=== PATIENT | female | born 1965 | race Caucasian/White ===

== ENCOUNTER 2017-06-28 18:12 | Emergency (ER) | payer BC ==
[~2017-06-28] VITALS: Ht 170.2 cm; Wt 108.9 kg
--- NOTE | 2017-06-28 18:20 | NUR ---
PRESENTS TO ER C/O NUMBNESS TO BOTH HANDS, MOUTH AND BILATERAL FEET SINCE 3AM TODAY. A/OX4 .BREATHING EVEN AND UNLABORED. NO SOB. NO NEURO DEFICITS. VITALS STABLE. SAFETY AND COMFORT MEASURES IN PLACE. AWAITING MD ORDERS.
[2017-06-28] MEDS ORDERED: LORAZEPAM 1 MG TABLET ONE (18:40)
[2017-06-28] MEDS ORDERED: diphenhydrAMINE HCL 25 MG CAPSULE ONE (18:41)
--- NOTE | 2017-06-28 18:45 | NUR ---
PATIENT MEDICATED PER MD ORDERS.
[2017-06-28] MEDS ORDERED: LORAZEPAM 1 MG TABLET PO ONE (19:00)
[2017-06-28] MEDS ORDERED: DIPHENHYDRAMINE HCL 12.5 MG/5 ML UDC PO ONE (19:00)
--- NOTE | 2017-06-28 19:02 | NUR ---
REPORT GIVEN TO JUSTIN LADD FOR [facility].
--- NOTE | 2017-06-28 19:05 | NUR ---
REPORT RECEIVED FROM JULEE MCPHERSON FOR [facility].
--- NOTE | 2017-06-28 19:51 | NUR ---
Patient discharged with family to home in stable condition. Written and verbal after care instructions given, instructed not to drive. Patient verbalizes understanding of instruction. Patient ambulatory with a steady gait.
[2017-06-28 19:53] VITALS: BP 118/52
== END 2017-06-28 19:56 | disposition home or self-care (01) ==
LOC: ER 18:14
DX: R20.2 Paresthesia of skin (principal); Z88.1 Allergy status to other antibiotic agents
CPT/HCPCS: 99283; A4606; Q0163 ×2; Z7610